=== PATIENT | male | born 1990 | race Caucasian/White ===

== ENCOUNTER → 2022-03-14 | Outpatient (CLI) | payer BC ==
--- NOTE | 2022-03-14 12:41 | P.SLEEP ---
History of Present Illness DATE: 03/14/2022 CONSULTATION/NEW PATIENT EVALUATION HISTORY OF PRESENT ILLNESS/SLEEP-WAKE EVALUATION: 31-year-old gentleman had been evaluated in the sleep center for possible obstructive sleep apnea hypopnea syndrome and significant excessive daytime sleepiness. SLEEP SCHEDULE: Usually sleep schedule on weekdays from 3 AM until 11 AM and on weekend from midnight until 11 AM. FALLING ASLEEP: No problems with falling asleep. DURING SLEEP: Patient has loud snoring and witnessed episodes of stop breathing during the sleep according to his . He wakes up from sleep 3 times with nocturia. Positive history of dry mouth No history of hypnogogical hallucinations, sleep paralysis, or cataplexy. DURING THE DAY/WAKE STATE: In the morning patient wake up tired, falling asleep during the day. [place] sleepiness scale is is in a very high range of 18. Patient never half time for the naps. PAST MEDICAL HISTORY: Episodes of cardiac arrhythmia with a very high heart rate. PAST SURGICAL HISTORY: [place] tooth removed. MEDICATIONS: None. SOCIAL HISTORY: Positive for smoking for 14 years up to 3 pack a day quit 3 years ago, alcohol consumption none. FAMILY HISTORY: Hypertension, stroke, pneumonia. REVIEW OF SYSTEMS: Loud snoring, multiple awakenings from sleep, significant excessive daytime sleepiness. No fevers. No double vision. No recent chest pain. No shortness of breath. No abdominal pain. No bleeding episodes. No blood in urine. No seizure episodes. PHYSICAL EXAMINATION: GENERAL: A pleasant patient without any distress. VITAL SIGNS: BP 121/75, HR 78, RR 14, weight 171.6 pounds, height 5 foot 10 inches, body mass index 24.5. HEENT: PERRLA, EOMI. Evaluation of oropharynx showed tongue protrudes midline, low position of soft palate Mallampati 3. NECK: Supple. No JVD. Thyroid is not palpable. 15 inches in circumference. LUNGS: Clear to percussion and to auscultation. Good air exchange. No wheezing or rhonchi. HEART: S1, S2 regular. No murmurs, gallops or rubs. ABDOMEN: Soft and nontender. Bowel sounds are present. No organomegaly appreciated. EXTREMITIES: No clubbing or cyanosis. PRECINCT POLICE CAPTAIN: Awake, alert, and oriented x3. Cranial nerves 2 to 7 intact. There is no fasciculation or atrophy noted. No focal deficits observed. ASSESSMENT: 1. Loud snoring, multiple awakenings from sleep, low position of soft palate Mallampati 3, sleepiness, witnessed episodes of stop breathing during the sleep. Obstructive sleep apnea hypopnea syndrome. 2. Extremely high [place] Sleepiness Scale of 18 dictated necessity to include narcolepsy and hypersomnia in differential diagnosis. 3. History of episodes of cardiac arrhythmia with very high heart rate while patient use energetic drinks before. PLAN: 1. Polysomnography for evaluation of patient's breathing during sleep with falling multiple sleep latency test if polysomnogram is negative for obstructive sleep apnea hypopnea syndrome. 2. CPAP/BiPAP titration if sleep study confirms obstructive sleep apnea- hypopnea syndrome. 3. Preferable position during sleep on the side. 4. No driving if patient feels any sleepiness. Patient is aware of civil and criminal liability for unsafe driving. 5. Sleep hygiene with regular sleep time for at least 7.5-8 hours. Thank you very much for referring this patient for consultation. Sincerely, Jose Street MD, PhD, FAASM. Diplomat of [place] [employer], Sleep Medicine Board by [place] [employer] [place] [employer] Grades 9 12 Tutor of [facility] - Sleep Note Sleep Note: Temperature: Pulse Rate: Respiratory Rate: Blood Pressure: SpO2: Height: Weight: BMI: Neck Circumference:
== END | disposition home or self-care (01) ==
LOC: SLEEP 11:49
PROVIDERS: ATTEND Internal Medicine
DX: G47.33 Obstructive sleep apnea (adult) (pediatric) (principal); Z99.89 Dependence on other enabling machines and devices

== ENCOUNTER → 2022-07-11 | Outpatient (CLI) | payer BC ==
--- NOTE | 2022-07-11 11:50 | P.PN ---
Subjective DATE: 07/11/2022 FOLLOW UP VISIT. Patient with obstructive sleep apnea hypopnea syndrome return to sleep center for follow-up visit. Recently patient had a home sleep apnea test, which documented obstructive sleep apnea hypopnea syndrome in mild range. Patient was started on treatment with CPAP, today's his first visit after treatment was initiated. After starting to use CPAP patient alertness improved. [place] Sleepiness Scale decreased from 18 down to 4 today. The patient does not have significant problems with the mask, PAP unit and humidification.. I checked information from PAP unit. PAP unit pressure 5-15, average 8.1 cm H2O. Usage is 80% and 70 % for more then 4 hours, average 5.5 hours per night. Leak is 25.5 l/m, which is in acceptable range. Apnea Hypopnea Index is 0.9, which is normal. MEDICATIONS: None During physical exam: GENERAL: A pleasant patient without any distress. VITAL SIGNS: BP 120/79, HR 95, RR 12, weight 180.4, temperature 97.7, oxygen saturation at room air 98 % . HEENT: PERRLA, EOMI.low position of soft palate, Mallapati 3. NECK: Supple. No JVD. LUNGS: Clear to percussion and to auscultation. Good air exchange. No wheezing or rhonchi. HEART: S1, S2 regular. ABDOMEN: Soft and nontender.[] EXTREMITIES: No clubbing or cyanosis. RIPRAP PLACING SUPERVISOR: Awake, alert, and oriented x3. No focal deficit. Impressions: 1. Mild obstructive sleep apnea-hypopnea syndrome. Patient demonstrated good compliance with treatment, benefiting from treatment. Alertness improved on CPAP therapy. 2. History of episodes of cardiac arrhythmia with high level of heart rate while patient used and not detected drinks before.. 3. History of significant excessive daytime sleepiness with [place] Sleepiness Scale 18, presently improved on treatment with CPAP [place] Sleepiness Scale reduced to 4. Plan: 1. Continue using PAP equipment every night for the whole night. 2. To change air filter at least 1-2 times per month. 3. PAP unit should stay lower then position of the head. 4. Advised patient to remove all remaining water from humidifier canister daily and make it dry after each usage. Refill canister with fresh distilled water before each usage. 5. Sleep hygiene with regular time in bed for at least 8 hours. 6. Precautions related to driving. No driving if feel any sleepiness. 7. I will maintain prescription for PAP supplies including mask, tube, filters. 8. Follow up visit in 6 months or earlier if patient has any problems. 9. Watching weight. Thank you very much for allowing me to participate in the management of your patient. Jose Street MD, PhD, FAASM. Diplomat of [place] [employer], Sleep Medicine Board by [place] [employer] Pressroom Worker of [facility] [place]
== END ==
LOC: 3 N SLEEP 11:13
PROVIDERS: ATTEND Internal Medicine
DX: G47.33 Obstructive sleep apnea (adult) (pediatric) (principal); Z99.89 Dependence on other enabling machines and devices; Z86.79 Personal history of other diseases of the circulatory system
CPT/HCPCS: 99212

== ENCOUNTER → 2022-12-06 | Outpatient (CLI) | payer BC ==
--- NOTE | 2022-12-06 15:11 | US ---
EXAMINATION TYPE: US venous doppler duplex LE RT DATE OF EXAM: 12/06/2022 2:21 PM COMPARISON: NONE CLINICAL INDICATION: Male, 32 years old with history of R60.0 localized edema; edema dorsal foot, med ial ankle at the end of the day SIDE PERFORMED: Right TECHNIQUE: The lower extremity deep venous system is examined utilizing real time linear array sonog lola with graded compression, doppler sonography and color-flow sonography. VESSELS IMAGED: Common Femoral Vein Deep Femoral Vein Greater Saphenous Vein * Femoral Vein Popliteal Vein Small Saphenous Vein * Proximal Calf Veins (* superficial vessels) Right Leg: Grayscale, color doppler, spectral doppler imaging performed of the deep veins of the low er extremities. There is normal flow, compressibility, vascular waveforms IMPRESSION: No evidence of deep venous thrombosis.
--- NOTE | 2022-12-06 15:21 | US ---
EXAMINATION TYPE: US arterial LE single level DATE OF EXAM: 12/06/2022 2:56 PM CLINICAL INDICATION: Male, 32 years old with history of R60.0 localized edema; History of: Smoker: previous Hypertension: No Diabetic: No Hyperlipidemia: No TIA/CVA: No Previous Vascular Surgery: No CAD: No [place]: No Vascular Ulcers: No Claudication: No Gangrene: No Doppler Waveforms: Right: Multiphasic Left: Multiphasic Right Brachial Pressure: 132 Left Brachial Pressure: 128 Ankle-Brachial Indices: Right: 1.2 Left: 1.1 Toe Brachial Indices: Right: 1.0 Left: 0.8 IMPRESSION: Normal ankle-brachial indices bilaterally.
== END | disposition home or self-care (01) ==
LOC: RADUSWWP 13:25
PROVIDERS: ATTEND Family Medicine
DX: R60.0 Localized edema (principal)
CPT/HCPCS: 93922

== ENCOUNTER → 2023-01-10 | Outpatient (CLI) | payer BC ==
--- NOTE | 2023-01-10 15:39 | CA ---
Transthoracic Echo Report Name: Homer Michel Age: 32 Gender: M : 1990 Exam Date: 01/10/2023 13:50 Exam Location: [facility] Ht (in): 71 Wt (lb): 185 Ordering Physician: Shantanu Allred MD Attending/Referring Phys: Ct Scan Technologist Thony Castle Procedure CPT: Indications: R22.41 edema R foot Cardiac Hx: Technical Quality: Fair Contrast 1: Total Dose (mL): Contrast 2: Total Dose (mL): MEASUREMENTS (Male / Female) Normal Values 2D ECHO LV Diastolic Diameter PLAX 5.0 cm 4.2 - 5.9 / 3.9 - 5.3 cm LV Systolic Diameter PLAX 3.8 cm IVS Diastolic Thickness 0.5 cm 0.6 - 1.0 / 0.6 - 0.9 cm LVPW Diastolic Thickness 0.9 cm 0.6 - 1.0 / 0.6 - 0.9 cm LV Relative Wall Thickness 0.3 RV Internal Dim ED PLAX 2.7 cm LVOT Diameter 2.6 cm Aortic Root Diameter 2.9 cm LA Systolic Diameter LX 1.5 cm 3.0 - 4.0 / 2.7 - 3.8 cm LV Diastolic Volume MOD BP 89.3 cm??? 67 - 155 / 56 - 104 cm??? LV Systolic Volume MOD BP 39.7 cm??? 22 - 58 / 19 - 49 cm??? LV Ejection Fraction MOD BP 55.6 % >= 55 % LV Diastolic Volume MOD 4C 97.1 cm??? LV Systolic Volume MOD 4C 42.1 cm??? LV Ejection Fraction MOD 4C 56.7 % LV Diastolic Length 4C 9.1 cm LV Systolic Length 4C 8.2 cm LV Diastolic Volume MOD 2C 77.3 cm??? LV Systolic Volume MOD 2C 34.5 cm??? LV Ejection Fraction MOD 2C 55.4 % LV Diastolic Length 2C 8.5 cm LV Systolic Length 2C 7.5 cm LA Volume 30.6 cm??? 18 - 58 / 22 - 52 cm??? LA Volume Index 14.9 cm???/m??? 16 - 28 cm???/m??? Ascending Aorta Diameter 2.9 cm DOPPLER AV Peak Velocity 109.7 cm/s AV Peak Gradient 4.8 mmHg LVOT Peak Velocity 88.1 cm/s LVOT Peak Gradient 3.1 mmHg LVOT Velocity Time Integral 17.8 cm LVOT Stroke Volume 94.1 cm??? LVOT Stroke Volume Index 46.1 ml/m??? AV Area Cont Eq pk 4.3 cm??? MV Peak Velocity 66.4 cm/s MV Peak Gradient 1.8 mmHg MV Mean Velocity 39.2 cm/s MV Mean Gradient 0.7 mmHg MV Velocity Time Integral 31.0 cm Mitral E Point Velocity 55.2 cm/s Mitral A Point Velocity 42.7 cm/s Mitral E to A Ratio 1.3 MV Deceleration Time 267.2 ms MV E' Velocity 11.8 cm/s Mitral E to MV E' Ratio 4.7 TR Peak Velocity 218.1 cm/s TR Peak Gradient 19.0 mmHg Right Ventricular Systolic Press 24.0 mmHg PV Peak Velocity 80.9 cm/s PV Peak Gradient 2.6 mmHg FINDINGS Left Ventricle Normal LV size and wall thickness.left ventricular ejection fraction is estimated at 55-60 %. Right Ventricle Normal right ventricular size. Right Atrium Normal right atrial size. Left Atrium Normal left atrial size. Mitral Valve Structurally normal mitral valve. No mitral regurgitation. Aortic Valve Trileaflet aortic valve. No aortic stenosis. No aortic regurgitation. Tricuspid Valve Structurally normal tricuspid valve. Trace TR. Pulmonic Valve Pulmonic valve not well visualized. No pulmonic regurgitation. Pericardium Normal pericardium. Aorta Normal size aortic root and proximal ascending aorta. CONCLUSIONS Normal LV function Previewed by: Dr. Rupesh Richards MD (Electronically Signed) Final Date: 10 January 2023 15:38
== END | disposition home or self-care (01) ==
LOC: RADECHMAIN 12:49
PROVIDERS: ATTEND Family Medicine
DX: R22.41 Localized swelling, mass and lump, right lower limb (principal)
CPT/HCPCS: 93306

== ENCOUNTER → 2024-07-19 | Outpatient (CLI) | payer BC ==
--- NOTE | 2024-07-19 08:50 | US ---
EXAMINATION TYPE: US abdomen complete DATE OF EXAM: 07/19/2024 COMPARISON: NONE CLINICAL INDICATION: Male, 33 years old with history of R19.00 INTRA-ABD AND PELVIC SWELLING, MASS AN D LUM; Small lump left of umbilicus TECHNIQUE: Grayscale and color Doppler imaging of the abdomen was performed. FINDINGS: EXAM MEASUREMENTS: Liver Length: 16.5 cm Gallbladder Wall: 0.2 cm CBD: 0.5 cm Spleen: 13.9 cm Right Kidney: 12.1 x 4.0 x 5.1 cm Left Kidney: 11.0 x 5.6 x 3.8 cm Pancreas: visualized portions appear wnl Liver: appears wnl Gallbladder: no evidence of stones Evidence for sonographic Cuevas's sign: no CBD: wnl Spleen: upper limits of normal Right Kidney: no evidence of hydronephrosis or mass Left Kidney: no evidence of hydronephrosis or mass Upper IVC: wnl Abd Aorta: wnl Scanned area of concern, LLQ, unable to identify a distinct hernia by ultrasound at this time ?other imaging modality. hyperechoic lesion LLQ = 1.0 x 0.4 x 0.8cm ?lipoma The liver is homogenous. The intrahepatic portion of the IVC and proximal abdominal aorta are within normal limits. There is no evidence of cholelithiasis. Common bile duct is unremarkable. The visu alized portions of the pancreas are homogenous. The spleen is unremarkable. Kidneys are symmetric a nd free of hydronephrosis. No renal lesions are seen. Corticomedullary differentiation is maintained bilaterally. No distinct hernia identified within the left lower quadrant however there is a hyperec hoic lesion within the subcutaneous tissues of the left lower quadrant wall measuring up to 1 cm. IMPRESSION: 1. No ultrasound evidence for acute process. 2. No evidence for hernia. 3. 1 cm hyperechoic lesion within the subcutaneous tissues of the left lower quadrant favored to repr esent a lipoma. Correlate clinically. [facility], , 07/19/2024 8:48 AM
== END | disposition home or self-care (01) ==
LOC: RADUSWWP 08:00
PROVIDERS: ATTEND Family Medicine
DX: R19.09 Other intra-abdominal and pelvic swelling, mass and lump (principal)
CPT/HCPCS: 76700

== ENCOUNTER 2024-08-14 22:19 | Emergency (ER) | payer BC ==
--- NOTE | 2024-08-14 22:39 | ED ---
Chest Pain HPI - General Chief Complaint: Chest Pain Stated Complaint: Chest tightness, JONNATHAN Time Seen by Provider: 08/14/24 22:24 Source: patient Mode of arrival: ambulatory Limitations: no limitations - History of Present Illness Initial Comments: 33-year-old male presented with chief complaint of chest pain. Pain started around 9 PM last night. States that it feels like a tightness. He admits to shortness of breath. Pain is worse with deep breathing. He denies any injury or trauma. No lower extremity swelling. He reports that he recently got back from [place] and was in the car for a few hours. No history of blood clots. No recent surgery. No cough congestion sore throat fever or chills. No headache or blurred vision. Patient does have history of hypertension, is not currently on any antihypertensives. Does not follow with a PCP. 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 - Related Data Allergies Allergy/AdvReac Type Severity Reaction Status Date / Time No Known Allergies Allergy Verified 08/14/24 22:22 Review of Systems ROS Statement: Those systems with pertinent positive or pertinent negative responses have been documented in the HPI. ROS Other: All systems not noted in ROS Statement are negative. Past Medical History Past Medical History: No Reported History History of Any Multi-Drug Resistant Organisms: None Reported Past Surgical History: No Surgical Hx Reported Past Psychological History: No Psychological Hx Reported Smoking Status: Vaper Past Alcohol Use History: Daily, Heavy Past Drug Use History: None Reported General Exam Limitations: no limitations General appearance: alert, in no apparent distress Head exam: Present: atraumatic, normocephalic, normal inspection Eye exam: Present: normal appearance, EOMI Neck exam: Present: normal inspection. Absent: meningismus Respiratory exam: Present: normal lung sounds bilaterally. Absent: respiratory distress, wheezes, rales, rhonchi, stridor Cardiovascular Exam: Present: regular rate, normal rhythm, normal heart sounds. Absent: systolic murmur, diastolic murmur, rubs, gallop, clicks Extremities exam: Absent: pedal edema Neurological exam: Present: alert, oriented X3 Psychiatric exam: Present: normal affect, normal mood Skin exam: Present: warm, dry, normal color Course Vital Signs 08/14/24 08/15/24 08/15/24 22:20 00:19 00:58 Temperature 97.9 F 98.7 F Pulse Rate 107 H 89 95 Respiratory 20 17 17 Rate Blood Pressure 180/118 148/103 153/103 O2 Sat by Pulse 99 96 97 Oximetry Chest Pain MDM - MDM Was pt. sent in by a medical professional or institution (, MARIMAR, PAROLE OFFICER, urgent care, hospital, or half-way...) When possible be specific @ -No Did you speak to anyone other than the patient for history (EMS, parent, family, police, friend...)? What history was obtained from this source @ -No Did you review nursing and triage notes (agree or disagree)? Why? @ -I reviewed and agree with nursing and triage notes Were old charts reviewed (outside hosp., previous admission, EMS record, old EKG, old radiological studies, urgent care reports/EKG's, half-way records)? Report findings @ -No old charts were reviewed Differential Diagnosis (chest pain, altered mental status, abdominal pain women, abdominal pain men, vaginal bleeding, weakness, fever, dyspnea, syncope, headache, dizziness, GI bleed, back pain, seizure, CVA, palpatations, mental health, musculoskeletal)? @ -MDM Differential Chest Pain: Stable Angina, Unstable Angina, STEMI, NSTEMI Aortic Dissection, Pneumothorax, Musculoskeletal, Esophageal Spasm GERD, Cholecystitis, Pancreatitis, Zosterâ€¦ This is not meant to be an all-inclusive list. EKG interpreted by me (3pts min.). @ -EKG shows sinus rhythm ventricular rate 96. SD interval 188 QRS 104 QT 344 QTc 397 X-rays interpreted by me (1pt min.). @ -Chest x-ray shows no acute findings CT interpreted by me (1pt min.). @ -None done U/S interpreted by me (1pt. min.). @ -None done What testing was considered but not performed or refused? (CT, X-rays, U/S, labs)? Why? @ -None What meds were considered but not given or refused? Why? @ -None Did you discuss the management of the patient with other professionals (professionals i.e. , MARIMAR, PAROLE OFFICER, lab, RT, psych nurse, medical social consultant, synchronizer, teacher, intelligence support officer, bilingual case manager)? Give summary @ -No Was smoking cessation discussed for >3mins.? @ -No Was critical care preformed (if so, how long)? @ -No Were there social determinants of health that impacted care today? How? (Homelessness, low income, unemployed, alcoholism, drug addiction, transportation, low edu. Level, literacy, decrease access to med. care, detention, rehab)? @ -No Was there de-escalation of care discussed even if they declined (Discuss DNR or withdrawal of care, Hospice)? DNR status @ -No What co-morbidities impacted this encounter? (DM, HTN, Smoking, COPD, CAD, Cancer, CVA, ARF, Chemo, Hep., AIDS, mental health diagnosis, sleep apnea, morbid obesity)? @ -None Was patient admitted / discharged? Hospital course, mention meds given and route, prescriptions, significant lab abnormalities, going to OR and other pertinent info. @ -33-year-old male presented chief complaint of chest pain. EKG shows sinus rhythm. Chest x-ray shows no acute findings. Negative troponin. D-dimer 0.18. Lab work requires no immediate action. Patient is pacing the hallways and eager for discharge home. He is educated on today's findings. I explained him that he needs to follow-up with the PCP for further testing outpatient which he is agreeable to. His pain is improved. Follow-up with PCP. Report back to ER with any new or worsening symptoms. Discussed return parameters and answered all questions. Patient conveyed verbal understanding and agreed to the plan. I discussed this case in detail with my attending Dr. Rajan Undiagnosed new problem with uncertain prognosis? @ -No Drug Therapy requiring intensive monitoring for toxicity (Heparin, Nitro, Insulin, Cardizem)? @ -No Were any procedures done? @ -No Diagnosis/symptom? @ -Chest pain Acute, or Chronic, or Acute on Chronic? @ -Acute Uncomplicated (without systemic symptoms) or Complicated (systemic symptoms)? @ -Uncomplicated Side effects of treatment? @ -No Exacerbation, Progression, or Severe Exacerbation? @ -No Poses a threat to life or bodily function? How? (Chest pain, [place], VT, pneumonia, PE, COPD, DKA, ARF, appy, cholecystitis, CVA, Diverticulitis, Homicidal, Suicidal, threat to staff... and all critical care pts) @ -Low likelihood Disposition Clinical Impression: Chest pain Disposition: HOME SELF-CARE Condition: Fair Instructions (If sedation given, give patient instructions): Chest Pain (ED) Additional Instructions: Follow-up with PCP. You may need an echocardiogram and/or Holter monitor. Report back to ER with any new or worsening symptoms. Is patient prescribed a controlled substance at d/c from ED?: No Referrals: Shantanu Allred MD [Primary Care Provider] - 1-2 days Time of Disposition: 00:40
[2024-08-14 23:07] LABS: Basophils # (A) 0.03 10*3/uL (0.00-0.10); Basophils % (A) 0.2 %; Eosinophils # (A) 0.15 10*3/uL (0.04-0.35); Eosinophils % (A) 1.1 %; HCT 41.8 % (39.6-50.0); HGB 15.1 g/dL (13.0-17.0); Lymphocytes # (A) 2.21 10*3/uL (0.90-5.00); Lymphocytes % (A) 15.9 %; MCH 30.1 pg (27.0-32.0); MCHC 36.1 g/dL (32.0-37.0); MCV 83.4 fL (80.0-97.0); Monocytes # (A) 0.87 10*3/uL (0.20-1.00); Monocytes % (A) 6.3 %; Neutrophils # (A) 10.58 10*3/uL (1.80-7.70); Neutrophils % (A) 75.9 %; Platelet Count 228 10*3/uL (140-440); RBC 5.01 10*6/uL (4.40-5.60); RDW 12.8 % (11.5-14.5); WBC 13.92 10*3/uL (4.50-10.00)
[2024-08-14] MEDS: ASPIRIN 81 MG PO STA (23:07)
[2024-08-14] MEDS: SODIUM CHLORIDE 0.9% 1,000 ML IV STA (23:07)
[2024-08-14 23:21] LABS: ALT 27 U/L (4-49); AST 41 U/L (17-59); African American GFR (CKD) >90 (>60 ml/min/1.73 sqM); Albumin 4.5 g/dL (3.5-5.0); Alkaline Phosphatase 38 U/L (38-126); Anion Gap 11 mmol/L; Blood Urea Nitrogen 11 mg/dL (9-20); Calcium 9.8 mg/dL (8.4-10.2); Carbon Dioxide 25 mmol/L (22-30); Chloride 100 mmol/L (98-107); Glucose 102 mg/dL (74-99); Lipase 85 U/L (23-300); Magnesium 1.8 mg/dL (1.6-2.3); Non-African American GFR(CKD) >90 (>60 ml/min/1.73 sqM); Potassium 4.4 mmol/L (3.5-5.1); Sodium 136 mmol/L (137-145); Total Protein 6.9 g/dL (6.3-8.2)
[2024-08-14 23:22] LABS: INR 0.9 (<1.2); Partial Thromboplastin Time 23.7 sec (22.0-30.0); Prothrombin Time 10.5 sec (10.0-12.5)
[2024-08-15 00:20] VITALS: RESP 17
--- NOTE | 2024-08-15 00:32 | XR ---
EXAM: XR Chest, 2 Views CLINICAL HISTORY: Chest Pain TECHNIQUE: Frontal and lateral views of the chest. COMPARISON: No relevant prior studies available. FINDINGS: Lungs: Unremarkable. No consolidation. Pleural space: Unremarkable. Mediastinum: Unremarkable. Normal mediastinal contour. Bones/joints: No acute findings. IMPRESSION: No acute findings.
[2024-08-15 01:03] VITALS: BP 153/103; PULSE 95; TEMP 98.7
== END 2024-08-15 01:03 | disposition home or self-care (01) ==
LOC: EC 22:19
DX: R07.89 Other chest pain (principal); F17.290 Nicotine dependence, other tobacco product, uncomplicated
CPT/HCPCS: 36415; 71046; 80053; 83690; 83735; 84484; 85025; 85379; 85610; 85730; 93005; 99285